=== PATIENT | female | born 1950 | race Caucasian/White ===

== ENCOUNTER 2025-09-13 13:16 | Outpatient (REF) | payer MEDICARE, OTHER, SELFPAY ==
[2025-09-13 16:04] LABS: MANUAL DIFF FLAG NO
[2025-09-13 16:23] LABS: Hematocrit 41.9 % (37.0-47.0); Hemoglobin 13.2 g/dl (12.0-16.0); Imm Gran Abs Auto 0.03 X10*3/uL (0.00-0.03); Imm Gran Pct Auto 0.4 % (0.0-0.4); Lymphocytes Absolute Auto 2.3 X10*3/uL (1.2-4.9); Mean Corpuscular HGB Conc 31.5 g/dl (31.0-35.0); Mean Corpuscular Hemoglobin 27.1 pg (27.0-33.0); Mean Corpuscular Volume 86.0 fL (80.0-98.0); NRBC Abs Auto 0.000 X10*3/uL (0.0-0.012); NRBC Pct Auto 0.0 /100WBC (0.0-0.2); Platelet Count 208 X10*3/uL (160-400); Red Blood Count 4.87 X10*6/uL (4.20-5.50); White Blood Count 7.0 X10*3/uL (4.8-10.8)
[2025-09-13 16:58] LABS: NT Pro B Type Natriuretic Pept 105.6 pg/mL (<300)
--- OUTSIDE RECORDS SUMMARY | 2025-09-13 18:52 | XMS_ITS | Clinical Summary ---
Author Organization [facility] Address [address] [place] [address] Phone Care Team Providers Care [employer] Name Role Phone Carlos Florence MD Primary Care Provider [phone] Allergies No known active allergies Encounters Date Type Department Care Team Description 07/15/[address] [place] [address] Carlos Florence MD 07/12/[address] [place] [address] Carlos Florence MD 07/06/[address] [place] [address] Carlos Florence MD 06/16/2025 8:10 AM EDT - 06/16/2025 11:59 PM EDT Hospital Encounter [facility] Pulmonary [address] [place] [address] Unspecified asthma, uncomplicated Discharge Disposition: Home or Self Care from Last 3 Months Social History Tobacco Use Types Packs/Day Years Used Date Smoking Tobacco: Never Assessed Comments Unknown Sex and Gender Information Value Date Recorded Sex Assigned at Not on file Legal Sex Female 1:10 AM EST Gender Identity Not on file Sexual Orientation Not on file Plan of Treatment Health Maintenance Due Date Last Done Comments Breast Cancer Screening 1950 Colorectal Cancer Screening: Colonoscopy 1950 Diabetes: Annual GFR (Glomerular Filtration Rate) 1950 Diabetes: Annual Foot Exam 1960 Diabetes: Annual Retina Eye Exam 1960 Cholesterol Screening (Lipid Panel) 11/18/2023 Falls Risk Assessment 11/18/2023 Hepatitis C Screening 11/18/2023 Medicare Annual Wellness Visit 11/18/2023 Osteoporosis Screening (Bone Density Screening) 11/18/2023 Social Influencers of Health Screening 11/18/2023 Depression Screening 10/20/2024 Diabetes: Annual Urine Albumin-Creatinine Ratio (uACR) 06/16/2025 Diabetes: Blood Sugar Control Test (HGBA1C) 06/16/2025 COVID-19 Vaccine ( season) 2025 07/02/2024, 07/19/2023, 08/01/2022, Additional history exists Influenza Vaccine (#1) 2025 , 08/15/2023, 07/15/2022, Additional history exists DTaP,Tdap,and Td Vaccines (3 - Td or Tdap) 10/24/2030 10/24/2020, 06/14/2011 Zoster Vaccines Completed 09/14/2019, 05/21, 05/03/2014 Pneumococcal Vaccine: 50+ Years Completed 08/28/2023, 10/06/2017, 06/05/2016, Additional history exists RSV Immunization Adult Patients Completed 04/27/2025 HIB Vaccines Aged Out No longer eligi ble based on patient's age to complete this topic HPV Vaccines Aged Out No longer eligi ble based on patient's age to complete this topic Hepatitis A Vaccines Aged Out No long er eligible based on patient's age to complete this topic Hepatitis B Vaccines Aged Out No long er eligible based on patient's age to complete this topic IPV Vaccines Aged Out No longer eligi ble based on patient's age to complete this topic MMR Vaccines Aged Out No longer eligi ble based on patient's age to complete this topic Meningococcal ACWY Vaccine Aged Out N o longer eligible based on patient's age to complete this topic Meningococcal B Vaccine Aged Out No l onger eligible based on patient's age to complete this topic RSV Immunization Patients Under 20 months Aged Out No longer eligible based on patient's age to complete this topic Varicella Vaccines Aged Out No longer eligible based on patient's age to complete this topic Procedures Procedure Name Priority Date/Time Associated Diagnosis Comments HC SPIROMETRY BRONCHODILATION RESPONSIVENESS PRE/POST BRONCHODILATOR ADMINISTRATION Routine 06/16/2025 9:07 AM EDT Unspecified asthma, uncomplicated from Last 3 Months Results * Pulmonary function testing: Carbon Monoxide Diffusing Capacity, Nitrogen Wash Out, Spirometry with Bronchodilator (06/16/2025 9:07 AM EDT) Narrative Nasreen Marx MD - 06/16/2025 12:36 PM EDT Table formatting from the original result was not included. Images from the original result were not included. [facility] [address] [place] [id number] Pulmonary Functions Report Date of service: 06/16/25 Patient Name: Lillian López Date of : 1950 Age: 74 y.o. Gender: female Ordering Provider: Jolynn Waterman MD Diagnosis listed on Order: Unspecified asthma, uncomplicated Reason for Exam: Order Questions Answers Reason for Exam: UNSPECIFIED ASTHMA, UNCOMPLICATED Which PFTs would you like to perform? Carbon Monoxide Diffusing Capacity,Nitrogen Wash Out,Spirometry with Bronchodilator Pulmonary Test Finding: Spirometry/ Flow Volume Loop: FEV1 is 1.06 at 56 % of predicted., FVC is 73 % of predicted. , FEV1/FVC ratio is 60 % of predicted. Spirometry Post Bronchodilator Response: No bronchodilator response. Lung Volumes: TLC is 78 % of predicted. RV is 93 % of predicted. RV/TLC is is 120 % of predicted. Diffusion Capacity: DLCO is 71 % of predicted (Adjusted DLCO is 72 %). DLCO/VA is 91 % of predicted. Quality of Study: Meets ATS criteria for acceptability and repeatability Refer to scanned report for all additional results and graphs. Interpretation/Impression: Moderate obstruction. Mild restriction. And mild decrease in diffusion. 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 us Jolynn Waterman MD PFT ORDERABLES Final Result from Last 3 Months Insurance MEDICARE [facility] Care Teams Private [employer] Relationship Specialty Start Date End Date Carlos Florence MD [facility] [place] [address] PCP - General Internal Medicine 07/06/25
[2025-09-14 07:08] LABS: Class Alternaria alternata 0; Class Aspergillus fumigatus 0/1; Class Bermuda Grass 0; Class Birch 0; Class Cat Dander 0; Class Cladosporium herbarum 0/1; Class Cockroach 0; Class Common Ragweed 0; Class Cottonwood 0; Class Derm. pterony 2; Class Dermatophagoides farinae 2; Class Dog Dander 0/1; Class Elm 0; Class Maple Box Elder 0; Class Mountain Cedar 0; Class Mouse Urine Protein 0; Class Mugwort 0; Class Oak 0; Class Penicillium crysogenum 0; Class Rough Pigweed 0; Class Sheep Sorrel 0; Class Sycamore 0; Class Timothy Grass 0; Class Walnut Tree 0/1; Class White Ash 0/1; Class White Mulberry 0; D002 - IgE D farinae 2.18 kU/L; E001 - IgE Cat Dander <0.10 kU/L; E005 - IgE Dog Dander 0.20 kU/L; G006 - IgE Timothy Grass <0.10 kU/L; I006-IgE Cockroach, German <0.10 kU/L; M002 - IgE Cladosporium herbar 0.13 kU/L; M003 - IgE Aspergillus fumigat 0.28 kU/L; M006 - IgE Alternaria alternat <0.10 kU/L; T001 IgE Maple/Box Elder <0.10 kU/L; T006 - IgE Cedar, Mountain <0.10 kU/L; T007 - IgE Oak, White <0.10 kU/L; T008 IgE Elm, American <0.10 kU/L; T010 - IgE Walnut 0.25 kU/L; T011 - IgE Maple Leaf Sycamore <0.10 kU/L; T014 - IgE Cottonwood <0.10 kU/L; T015 - IgE Ash, White 0.20 kU/L; T070 - IgE White Mulberry <0.10 kU/L; W001 - IgE Ragweed, Short <0.10 kU/L; W006 - IgE Mugwort <0.10 kU/L; W014 IgE Pigweed, Common <0.10 kU/L; W018 IgE Sheep Sorrel <0.10 kU/L
== END 2025-09-13 13:17 | disposition home or self-care (01) ==
LOC: HO.HMGCLDS 13:16
PROVIDERS: PCP Internal Medicine; Referring Provider Allergy & Immunology; Visit Provider Nurse Practitioner Family
DX: I27.20 Pulmonary hypertension, unspecified (principal); J45.909 Unspecified asthma, uncomplicated; R06.00 Dyspnea, unspecified; Z91.09 Other allergy status, other than to drugs and biological substances
CPT/HCPCS: 36415; 82785; 83880; 85025; 86003; 99202

== ENCOUNTER 2025-09-13 13:16 | Outpatient (AMB) | payer MEDICARE, OTHER, SELFPAY ==
--- OUTSIDE RECORDS SUMMARY | 2025-09-09 23:59 | XMS_ITS | Continuity of Care Document ---
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 Name Role Phone Carlos Florence MD Primary Care Physician [phone] [id number] Date(s): 09/02/25 - 09/09/25 [facility] [address], [place] [address] Attending Physician: Carlos Florence MD Encounter Type: Office Visit Allergies, Adverse Reactions, Alerts Substance Criticality Severity Reaction Reaction Severity Status Other Environmental Allergy pollen, trees, dust, mold Active Soy Products joint pain Active Functional Status Functional Status Assessment Assessment Assessment Component Result Effecti ve Date Disability status [CUBS] I'm Thriving - no identified disability 09/02/25 Are you blind, or do you have serious difficulty seeing, even when wearing glasses No 09/02/25 Do you have difficul ty dressing or bathing No 09/02/25 Do you need any oumou tional assistance or accommodations during your visit No 09/02/25 Are you deaf, or do you have serious difficulty hearing No 09/02/25 Because of a physica l, mental, or emotional condition, do you have difficulty doing errands alone such as visiting a physician's office or shopping No 09/02/25 Difficulty Reading O r Writing No 09/02/25 Do you have serious difficulty walking or climbing stairs No 09/02/25 Difficulty communica ting in usual language No 09/02/25 Because of a physica l, mental, or emotional condition, do you have serious difficulty concentrating, remembering, or making decisions No 09/02/25 Immunizations Given and Recorded Vaccine Date Status Refusal Reason influenza virus vaccine, inactivated 07/30/25 Cruz rded influenza virus vaccine, inactivated 08/14/24 Cruz rded influenza virus vaccine, inactivated 08/15/23 Cruz rded influenza virus vaccine, inactivated 07/15/22 Cruz rded influenza virus vaccine, inactivated 07/13/21 Cruz rded influenza virus vaccine, inactivated 1 06/20/18 Re corded influenza virus vaccine, inactivated 07/21/17 Cruz rded influenza virus vaccine, inactivated 2 07/20/16 Re corded influenza virus vaccine, inactivated 3 07/22/15 Re corded influenza virus vaccine, inactivated 4 09/26/14 Re corded influenza virus vaccine, inactivated 08/08/13 Cruz rded influenza virus vaccine, inactivated 5 08/03/12 Gi yael influenza virus vaccine, inactivated 07/15/11 Give n SARS-CoV-2(COVID-19)mRNA-LNP vac([id number]) 07/22/25 Recorded RSV vaccine, preF A-preF B, recombinant 04/27/25 R ecorded SARS-CoV-2(COVID-19)mRNA-LNP vac([id number]) 07/02/24 Recorded SARS-CoV-2(COVID-19)mRNA-LNP vac([id number]) 07/19/23 Recorded pneumococcal 20-valent conjugate vaccine 08/28/23 Given [id number] 12y+ bivalent booster vax 08/01/22 Recorded SARS-CoV-2 mRNA ([id number]) vax 05/03/22 Recorded SARS-CoV-2 (COVID-19) mRNA BNT-162b2 vac 08/03/21 Recorded SARS-CoV-2 (COVID-19) mRNA BNT-162b2 vac 01/02/21 Recorded SARS-CoV-2 (COVID-19) mRNA BNT-162b2 vac 12/11/20 Recorded tetanus/diphtheria/pertussis, acel(Tdap) 6 10/24/20 Given tetanus/diphtheria/pertussis, acel(Tdap) 06/14/11 Given Influenza Virus Vaccine (oldterm) 07/17/20 Recorde d Influenza Virus Vaccine (oldterm) 07/20/19 Recorde d zoster vaccine, inactivated 09/14/19 Recorded zoster vaccine, inactivated 06/14/19 Recorded pneumococcal 23-valent vaccine 10/06/17 Given pneumococcal 13-valent vaccine 06/05/16 Recorded Zoster Vaccine Live 05/03/14 Given Pneumococcal Vaccine (oldterm) 06/14/11 Given 1Location History: Dr. Morejon's Office 2Result Comment: [09/30/2016] allergy 3Result Comment: [09/29/2015] recevied Dr Kimble office 4Result Comment: [09/26/2014] per pt 5Admin Note: allergy doctor 6Result Comment: [id number] Medications Breztri Aerosphere inhalation aerosol 2 inhalation, 0 Refills, Maintenance, 08/02/25 1:22:00 PM EDT, Partial fill upon patient request ifthe prescription is for a schedule II opioid drug. Start Date: 08/02/25 Status: Ordered Medication Dispense Status: Completed Total Allowed Fills: 1 Fills Dispensed: 0 ICaps Lutein & [place]-3 0 Refills, Maintenance, 02/25/24 8:19:00 AM EDT, Partial fill upon patient request if the prescription is for a schedule II opioid drug. Start Date: 02/25/24 Status: Ordered Medication Dispense Status: Completed Total Allowed Fills: 1 Fills Dispensed: 0 Knee Support See Instructions, # 1 units, Maintenance, elastic brace for dx of torn meniscus, 09/07/14 1:24:08 PM EST, Compound Start Date: 09/07/14 Status: Ordered Medication Dispense Status: Completed Quantity: 1.0 Unit: Units Total Allowed Fills: 1 Fills Dispensed: 0 levalbuterol 45 mcg/inh inhalation aerosol 0 Refills, Maintenance, 08/28/23 8:13:00 AM EST, Partial fill upon patient request if the prescription is for a schedule II opioid drug. Start Date: 08/28/23 Status: Ordered Medication Dispense Status: Completed Total Allowed Fills: 1 Fills Dispensed: 0 levothyroxine 0.05 mg oral tablet 1 tablet, By Mouth, Daily, # 90 tablet, 3 Refills, Maintenance, 09/02/25 9:16:00 AM EST, [facility]/pharmacy #[id number], 160, cm, 09/02/25 8:45:00 EST, Height, 69, kg, 09/02/25 8:45:00 EST, Dry Weight Start Date: 09/02/25 Status: Ordered Medication Dispense Status: Completed Quantity: 90.0 Unit: tablet Total Allowed Fills: 4 Fills Dispensed: 0 metFORMIN 500 mg oral tablet, extended release 4 tablet = 2,000 mg, By Mouth, Daily at supper, THis is NOT the osmoticformulation, # 360 tablet, 3Refills, Maintenance, 08/22/25 9:11:00 AM EST, ER Tablet, [facility]/pharmacy #[id number], THis is NOT the osmoticformulation, 160, cm, 02/25/25 9:11:00 EDT, Height, 68.6, kg, 02/25/25 8:40:00 EDT, Dry Weight Start Date: 08/22/25 Status: Ordered Medication Dispense Status: Completed Quantity: 360.0 Unit: tablet Total Allowed Fills: 4 Fills Dispensed: 0 nystatin topical 631502 u/gm powder 1 application, Topically, 2 times a day, # 60 Gm, 0 Refills, Maintenance, 05/20/25 12:29:00 PM EDT, Powder, [facility]/pharmacy #[id number], Partial fill upon patient request if the prescription is for a schedule II opioid drug., 1 application Topically 2 times a day, 160, cm, 04/07/25 12:56:00 EDT, Height, 68.9,kg, 04/07/25 12:56:00 EDT, Dry Weight Start Date: 05/20/25 Status: Ordered Medication Dispense Status: Completed Quantity: 60.0 Unit: g Total Allowed Fills: 1 Fills Dispensed: 0 One Touch Delica Lancets See Instructions, # 1 box, Refills 6, Tot. Refills 6, Maintenance, Test blood sugar twice daily DX:DM type 2, 06/20/11 3:03:39 PM EDT Start Date: 06/20/11 Status: Ordered Medication Dispense Status: Completed Quantity: 1.0 Unit: box Total Allowed Fills: 7 Fills Dispensed: 0 One Touch Ultra Test Strips See Instructions, # 100 each, Refills 11, Tot. Refills 11, Maintenance, use bid aodm 2 e11.9, 02/25/25 9:17:00 AM EDT, Supply, 160, cm, 02/25/25 9:11:00 EDT, Height, 68.6, kg, 02/25/25 8:40:00 EDT, DryWeight Start Date: 02/25/25 Status: Ordered Medication Dispense Status: Completed Quantity: 100.0 Unit: each Total Allowed Fills: 12 Fills Dispensed: 0 pimecrolimus topical cream 0 Refills, Maintenance, 01/30/23 8:21:00 AM EDT, Partial fill upon patient request if the prescription is for a schedule II opioid drug. Start Date: 01/30/23 Status: Ordered Medication Dispense Status: Completed Total Allowed Fills: 1 Fills Dispensed: 0 pravastatin 80 mg oral tablet 1 tablet, By Mouth, Daily, # 90 tablet, 3 Refills, Maintenance, 09/02/25 9:16:00 AM EST, [facility]/pharmacy #[id number], 160, cm, 09/02/25 8:45:00 EST, Height, 69, kg, 09/02/25 8:45:00 EST, Dry Weight Start Date: 09/02/25 Status: Ordered Medication Dispense Status: Completed Quantity: 90.0 Unit: tablet Total Allowed Fills: 4 Fills Dispensed: 0 Tylenol 325 mg oral capsule 2 capsule = 650 mg, By Mouth, Every 4 hours, PRN Pain , Moderate, # 90 capsule, 0 Refills, Maintenance, 01/10/22 12:10:00 PM EDT, Capsule, [id number], Partial fill upon patient request if the prescription is for a schedule II opioid drug., 157.48, cm, 01/10/22 9:13:00 EDT, Height, 71.1, kg, 01/10/22 9:13:00 EDT, Dry Weight Start Date: 01/10/22 Status: Ordered Medication Dispense Status: Completed Quantity: 90.0 Unit: capsule Total Allowed Fills: 1 Fills Dispensed: 0 Vitamin D3 1000 intl units oral tablet 1 tablet = 25 mcg, By Mouth, Daily, 0 Refills, Maintenance, 08/28/23 8:16:00 AM EST, Partial fill upon patient request if the prescription is for a schedule II opioid drug. Start Date: 08/28/23 Status: Ordered Medication Dispense Status: Completed Total Allowed Fills: 1 Fills Dispensed: 0 ZyrTEC 10 mg oral tablet 1 tablet = 10 mg, By Mouth, Daily, # 30 tablet, 3 Refills, Maintenance, 05/25/20 9:20:00 AM EDT, Tablet, [id number], 158, cm, 05/25/20 8:54:00 EDT, Height, 74.8, kg, 04/06/19 8:18:00 EDT, Dry Weight Start Date: 05/25/20 Status: Ordered Medication Dispense Status: Completed Quantity: 30.0 Unit: tablet Total Allowed Fills: 4 Fills Dispensed: 0 Problem List Condition Confirmation Course Effective Dates Status H ealth Status Informant Asthma Confirmed Active Diabetes mellitus type 2 Confirmed Active Diverticulosis of colon Confirmed 04/15/22 Active S/P BSO (bilateral salpingo-oophorectomy ) Confirmed 01/10/22 Active H/O osteopenia Confirmed Active H/O: obesity Confirmed Active Hyperlipidemia Confirmed 05/05/11 Active Hypothyroid Confirmed Active Osteopenia Confirmed Active Pelvic mass Confirmed Active Personal History of Colonic Polyps Confirmed 07/15/09 Active 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 Confirmed 09/15/11 Active Vital Signs Most recent to oldest [Reference Range]: 1 Height 160 cm (09/02/25 8:45 AM) Weight 69 kg (09/02/25 8:45 AM) Oxygen Saturation [94-100 %] 96 % (09/02/25 8:45 AM) Pulse Rate [55-90 bpm] 87 bpm (09/02/25 8:45 AM) Body Mass Index [18.5-24.99 kg/m2] 26.95 kg/m2 *H* (09/02/25 8:45 AM) Blood Pressure [90-138/55-84 mm Hg] 131/ 78mm Hg (09/02/25 8:45 AM) Mode of Delivery (Oxygen) Room air (09/02/25 8:45 AM) Blood pressure sites Arm, left (09/02/25 8:45 AM) Dry Weight 69 kg (09/02/25 8:45 AM) Weight Obtained Via Standing scale (09/02/25 8:45 AM) Social History Social History Type Response Smoking Status Never smoker entered on: 05/30/14 Sexual Orientation Self described orijena tation: ; Straight or heterosexual Sex Sex Representation Female (finding) Note * Sussy Johnson: PERFORM Event Display: Patient Education/Instruction Authored Date: Ambulatory Adult Visit Summary [facility] [address] [place] [id number] Name: LILLIAN REY : 1950?? Visit: 09/02/2025 08:27?? Ambulatory Visit Instructions ?? Your Care Team Primary Care Provider Carlos Florence MD? This Visit Provider Carlos Florence MD Your Diagnosis Asthma Diabetes mellitus type 2 Hyperlipidemia Hypothyroid Vitals Signs Pulse Rate: 87 bpm Height: 160 cm Systolic Blood Pressure: 131 mm Hg Weight: 69 kg Diastolic Blood Pressure: 78 mm Hg Body Mass Index:??26.95 kg/m2??High Oxygen Saturation: 96 % Body surface area: 1.75 What to do next Scheduled Follow-Up Appointments Friday2025 10:30 AM EDT ?? Type: MM Screening Mammo Where: [facility] [address] [place] [id number]- Status: Pending Follow-Up Appointments Follow Up with??Carlos Florence MD When:2025 08:00 AM EDT Where:[address] [place] [address] Adult & [place] [address]- Future Orders COVID-19, Flu A/B, RSV Rapid PCR - Routine, Nasopharyngeal, Patient is Symptomatic, Once, 02/09/25 14:47:00 EDT, Copy to: Carlos Florence MD, Order for Today, [facility], Nasopharyngeal?? Hemoglobin A1C (Monitoring) - Routine, Once, 08/28/25 3:00:00 EST, Single or Recurring Future Order, [facility], Blood?? Lipid Panel - Routine, Once, 09/02/25 9:14:00 EST, Single or Recurring Future Order, [facility], Blood?? AST - Routine, Once, 09/02/25 9:14:00 EST, Single or Recurring Future Order, [facility], Blood?? Hemoglobin A1C (Monitoring) - Routine, Once, 09/02/25 9:14:00 EST, Single or Recurring Future Order, [facility], Blood?? TSH - Routine, Once, 09/02/25 9:14:00 EST, Single or Recurring Future Order, [facility], Blood?? Free T4 - Routine, Once, 09/02/25 9:15:00 EST, Single or Recurring Future Order, [facility], Blood?? Medications The list below reflects the information in our records and provided by you today along with any changes made during this visit. Please continue your medications until treatment is completed or stopped by your provider. If this is different from the information you have or there are other questions,please contact the prescribing provider. What How Much When Instructions New Levothyroxine (levothyroxine 0.05 mg oral tablet) 1 tab(s) Oral Daily Refills: 3 Ordering Physician: Carlos Florence MDup at [facility]/pharmacy #[id number] New Pravastatin (pravastatin 80 mg oral tablet) 1 tab(s) Oral Daily Refills: 3 Ordering Physician: Carlos Florence MDup at [facility]/pharmacy #[id number] Unchanged Acetaminophen (Tylenol 325 mg oral capsule) 2 capsule Oral Every 4 hours as needed for Pain , Moderate Ordering Physician: Ki GARCIA, Liliya Panchal Unchanged budesonide/ formoterol/ glycopyrrolate (Breztri Aerosphere inhalation aerosol) 2 inhalation Unchanged Cetirizine (ZyrTEC 10 mg oral tablet) 1 tab(s) Oral Daily Ordering Physician: Braulio GARCIA, Loretta Unchanged Cholecalciferol (Vitamin D3 1000 intl units oral tablet) 1 tab(s) Oral Daily Unchanged Durable Medical Equipment (Knee Support) See instructions Special Instructions: elastic ??brace ?? for ??dx ??of ??torn ??meniscus Ordering Physician: Carlos Florence MD ?? Unchanged Durable Medical Equipment (One Touch Delica Lancets) See instructions Special Instructions: Test blood sugar twice daily DX: DM type 2 Ordering Physician: Carlos Florence MD ?? Unchanged Durable Medical Equipment (One Touch Ultra Test Strips) See instructions Special Instructions: use bid ??aodm 2 ??e11.9 Ordering Physician: Carlos Florence MD ?? Unchanged Levalbuterol (levalbuterol 45 mcg/ inh inhalation aerosol) Unchanged Metformin (metFORMIN 500 mg oral tablet, extended release) 4 tab(s) Oral Daily at supper Special Instructions: THis ??is ??NOT ??the ??osmoticformulation Ordering Physician: Carlos Florence MD ?? Unchanged Multivitamin With Minerals (ICaps Lutein & [place]-3) Unchanged Nystatin Topical (nystatin topical 208254 u/ gm powder) 1 yovany Topically Twice a day Ordering Physician: Carlos Florence MD Unchanged Pimecrolimus Topical (pimecrolimus topical cream) Pharmacy Information [facility]/pharmacy #[id number]: [address], [place] [id number] [phone] ?? What How Much When Comments Stop Taking PredniSONE (predniSONE 10 mg oral tablet) See instructions Special Instructions: 4 qam X 3 days, 3 X3 days, 2 X 3 day;s, 1X 3 days Ordering Physician: Carlos Florence MD ?? Test Performed Below is a partial list of the tests performed during your Visit. You may have had other tests and procedures not included in this list. Please discuss all test results with your provider. AST?-- Results Pending -- Free T4?-- Results Pending -- Hemoglobin A1C (Monitoring)?-- Results Pending -- Lipid Panel?-- Results Pending -- TSH?-- Results Pending -- Medications and Immunizations Administered Medications Given During Visit No medications given during this visit.?? Allergies (NKA means No Known Allergies) Other Environmental Allergy??pollen, trees, dust, mold Soy Products??joint pain Common Emergency Awareness Tips IS IT A STROKE? Act FAST and Check for these signs: FACE Does the face look uneven? ARM Does one arm drift down? SPEECH Does their speech sound strange? TIME Call at any sign of stroke ?? Heart Attack Signs Chest discomfort: Most heart attacks involve discomfort in the center of the chest and lasts more than a few minutes, or goes away and comes back. It can feel like uncomfortable pressure, squeezing, fullness or pain. Discomfort in upper body: Symptoms can include pain or discomfort in one or both arms, back, neck, jaw or stomach. Shortness of breath: With or without discomfort. Other signs: Breaking out in a cold sweat, nausea, or lightheaded. Remember, MINUTES DO MATTER. If you experience any of these heart attack warning signs, call to get immediate medical attention! ?? Smoking can increase your chances of developing chronic health problems and can cause harmful effects to other family members in your house. If you smoke, you are strongly encouraged to quit. Please call [facility] Link at [phone] or [phone] ([phone]) or log in to [email or web address] for referrals to smoking cessation programs. ?? The National Suicide Prevention Hotline is available 12/05 if you or someone you know needs to find a reason to keep living. By calling 4-737-897-[employer] (3698) you'll be connected to a skilled, trained counselor at a crisis center in your area. [facility] Portal You can view and manage your care through the patient portal or by using a health care yovany of your choosing. [employer] is a website that allows you to securely view your medical information including your hospital discharge summary, office visit summaries, medications and follow-up visits. You can also request appointments, renew medications, and request access to your medical information using a health care yovany of your choosing, or just ask a question. You can enroll at [email or web address] or register during your next office visit. [facility], in keeping with [facility] guidance, no longer requires face masks for staff, patientsor visitors in most situations. Similiar to time spent indoors at other locations, there is the chance that you were exposed to repiratory viruses during your time with us (such as flu or COVID-19). If you develop symptoms concerning for a viral respiratory infection, please seek testing (and treatment if indicated) from your medical provider or home test kit. ?? Disclaimer: The information provided is of a general nature and is intended to be used in conjunction with the recommendations and advice of your health care practitioner. Every effort has been made to ensure that the information provided is accurate and complete at the time it is provided to you however, as your needs change, or, as new information becomes available, different or additional instructions may be required. ?? If you have questions, please consult with your primary care provider or pharmacist, as appropriate. This information is not intended to serve as substitution for assessment and evaluation by a qualified health care provider. If you do not have a primary care provider, you may find a [facility] provider by calling [facility] at [phone]. Patient Care team information Care Team Personnel Name: Carlos Florence MD Position: [facility] Physician - Primary Care Member Role: PCP Address: [address] [place] [address] [facility] [place] [id number] Telecom: Care Team Related Persons Name: DAMON REY Insurance Providers Guarantor name: LILLIAN CANDIDO Health Plan Information #: 1 Payer: MEDICARE B Payer Identifier: NA Member Number: [id number] Group Number: NA Subscriber Identifier: [id number] Relationship to Subscriber: self Coverage Type: NA Coverage Verification Date: NA Telecom: NA Address: Health Plan Information #: 2 Payer: [facility] [employer] Payer Identifier: Member Number: [id number] Group Number: [id number] Subscriber Identifier: [id number] Relationship to Subscriber: spouse Coverage Type: Commercial Indemnity Coverage Verification Date: NA Telecom: Address:
--- NOTE | 2025-09-13 13:19 | MHC.OFFVIS ---
Vital Signs 09/13/25 13:20 Height 5 ft 2 in Weight 155 lb 4 oz BMI 28.4 BP 110/68 Blood Pressure Location Lt brachial Position Sitting Pulse 74 Pulse Source Pulse Oximeter Pulse Oximetry (%) 94 Oxygen Delivery Method Room Air Intake Visit Reasons: Abnormal CT scan Allergies No Known Allergies Allergy (Verified 09/13/25 13:21) HPI HPI Abnormal CT scan: Details: Minda is a pleasant 74 year old female, never smoker, with underlying asthma, DMII and hypothyroidism. She was referred by Dr. Waterman for pulmonary evaluation for worsening asthma control and abnormal chest CT. She reports asthma was diagnosed in 2022 and is allergy-induced, with symptoms primarily occurring during physical exertion such as climbing stairs or walking uphill. The patient reports using Breztri since June 29, with some improvement, but still experiences dyspnea on exertion. Denies cough, wheezing, or chest tightness. The patient has a history of allergic rhinitis, with known allergies to dust, mold, trees, and pollen, and previously received allergy shots for 20+ years, no recent allergy testing. The patient reports sinus congestion, which was problematic two years ago, leading to a debridement procedure with significant improvements. Pulmonary hypertension was suspected due to mildly enlargement within the pulmonary arteries, noted on chest CT 06/2025. Subsequently underwent echo which demonstrated mild pulmonary hypertension RVSP 44 mmHg, per industrial maintenance mechanic, Dr. Flanagan at [facility], felt this was related to asthma. The patient underwent a pulmonary function test showing moderate obstruction and mild restriction, with a decreased diffusion capacity at 71%. A CT scan revealed mild atelectasis and slight enlargement of the heart, with mild calcifications in the coronary arteries otherwise no signs of ILD. [facility] Social History (Updated 09/13/25 @ 13:22 by Jocy Rod [facility]) Patient Tobacco Use Status: Never used Tobacco Review of Systems Const Denies chills, Denies excessive sweating, Denies fever(s), Denies headache(s) and Denies night sweats Eyes Denies dry eyes, Denies irritation and Denies itchy eyes ENT Reports Normal hearing present, Denies headache(s), Denies nasal congestion and Denies sore throat Card Denies chest pain, Denies chest pain at rest, Denies chest pain with activity, Denies claudication, Denies leg edema, Denies orthopnea and Denies paroxysmal nocturnal dyspnea Resp Denies chest congestion, Denies cough, Denies excessive phlegm production, Denies pain on inspiration, Denies pain with cough, Denies stridor and Denies wheezing Musc Denies myalgias Neuro Reports Normal hearing present and Denies headache(s) Endo Denies excessive sweating Mehul/Lymph Denies lymphadenopathy Aller/Immun Denies itchy eyes, Denies seasonal rhinorrhea and Denies wheezing Physical Exam Vital Signs: Last Vital Signs Pulse 74 09/13/25 13:20 BP 110/68 09/13/25 13:20 Pulse Ox 94 09/13/25 13:20 Oxygen Delivery Method Room Air 09/13/25 13:20 BMI result Body Mass Index 28.4 Const General: cooperative, healthy appearing, comfortable, no acute distress, well developed and alert Orientation/consciousness: patient oriented x3 Limitations: no limitations HEENT Head: Yes normal to inspection, Yes normocephalic and Yes atraumatic Ears: hearing grossly normal bilaterally and external ears normal Eyes General: appearance normal, both eyes and all related structures Eyelids: Yes eyelids normal Sclerae: sclerae normal EOM: EOMs intact bilaterally Neck Neck: Yes normal visual inspection and Yes no lymphadenopathy Lymphatic: no lymphadenopathy noted Chest Chest palpation & inspection: normal inspection of the chest Resp Effort & Inspection: normal respiratory effort, able to speak in complete sentences, no audible wheezes, no cough, no stridor, not tachypneic, no tripod positioning and no use of accessory muscles Auscultation: clear to auscultation bilaterally Cardio Jugular venous distension: no JVD Rate: regular rate Rhythm: regular rhythm Skin Other: warm, dry General skin exam: no rashes or lesions noted Neuro General: patient oriented x3 Cranial nerves: Yes Normal hearing present Cognition (Neuro): normal cognition Gait exam (Neuro): Normal gait present Extrem General: Yes normal to inspection, Yes capillary refill normal, Yes no clubbing, cyanosis or edema and Yes no pedal edema Psych Appearance: grossly normal and well kempt Speech and movement: Normal speech and movement present and Clear speech present Affect: normal affect Attitude: cooperative Thought process: Normal thought process present Thought content: Normal thought content present Insight: Good insight present (Psych) Judgement: Good judgement present (Psych) Assessment & Plan Assessment & Plan (1) Pulmonary hypertension: Code(s): I27.20 - Pulmonary hypertension, unspecified Category: Medical (2) Asthma: Code(s): J45.909 - Unspecified asthma, uncomplicated Category: Medical (3) Environmental allergies: Code(s): Z91.09 - Other allergy status, other than to drugs and biological substances Category: Medical (4) Dyspnea: Code(s): R06.00 - Dyspnea, unspecified Category: Medical Plan Discussed with the patient the potential causes of pulmonary hypertension, including cardiac and pulmonary origins, and the importance of accurate diagnosis through right heart catheterization. We reviewed the risks and benefits of the procedure, including the potential for bleeding and infection, and the need for accurate pressure measurements to guide treatment. Will hold off until next visit to refer as patient apprehensive. Explained the role of allergy testing in managing asthma and the possibility of using biologics if allergies are a significant factor. Will also send for BNP although patient does not appear overloaded at this time. Continued follow up with cardiology recommended. The patient is advised to continue using Breztri for asthma management, with consideration for switching to Trelegy if symptoms persist. The patient is instructed to monitor symptoms and report any worsening, and to consider using albuterol as needed for acute symptoms. All questions were answered and patient is in agreement of plan. Will follow up in 6-8 weeks or sooner if needed Orders: Orders NT Pro B Type Natriuretic Pept 09/13/25 R06.00 - Dyspnea, unspecified Resp Allergy Profile Region I 09/13/25 Z91.09 - Other allergy status, other than to drugs and biological substances Immunoglobulin E 09/13/25 Z91.09 - Other allergy status, other than to drugs and biological substances Complete Blood Count Auto Diff 09/13/25 Z91.09 - Other allergy status, other than to drugs and biological substances Coding Level of Care Code New Pt Level 4 (64139) Complex visit Add On G2211 Diagnoses Pulmonary hypertension I27.20 Asthma J45.909 Environmental allergies Z91.09 Dyspnea R06.00
[2025-09-13 13:20] VITALS: BP 110/68; PULSE 74; O2SAT 94; BMI 28.4
--- OUTSIDE RECORDS SUMMARY | 2025-09-13 17:05 | XMS_ITS | Encounter Summary ---
Author Organization [facility] Address [address] [place] [address] Phone Care Team Providers Care Reshipping Clerk Name Role Phone Carlos Florence MD Primary Care Provider Encounter Details Date Type Department Care Team (Late st Contact Info) Description 01/27/2024 Procedure Pass [facility] Periop 1st floor [address] [place] [address] Social History Tobacco Use Types Packs/Day Years Used Date Smoking Tobacco: Never Smokeless Tobacco: Never Alcohol Use Standard Drinks/Week Comments Not Currently 0 (1 standard drink = 0.6 oz pur e alcohol) Education Answer Date Recorded Are you interested in more education? Not on lindy e 02/15/2023 Are you concerned about learning? Not on file 02/15/2023 No 02/15/2023 No 02/15/2023 Digital Access Answer Date Recorded No 03/16/2023 No 03/16/2023 Reliable internet access at home? Not on file 03/16/2023 Device with a working camera? Not on file Intimate Partner Violence Answer Date R ecorded Are you denied basic needs s uch as food, clothing, or medical care? No 01/27/2024 In the past 12 months have y ou been in a relationship with a person who hurts, threatens, or tries to control you? No 01/27/2024 Are you denied basic needs s uch as food, clothing, or medical care? No 01/27/2024 In the past 12 months have y ou been in a relationship with a person who hurts, threatens, or tries to control you? No 01/27/2024 Comments No Sex and Gender Information Value Date Recorded Sex Assigned at Not on file Legal Sex Female 6:21 PM EST Gender Identity Not on file Sexual Orientation Not on file documented as of this encounter Plan of Treatment Not on file documented as of this encounter Visit Diagnoses Not on filedocumented in this encounter Care Teams Reshipping Clerk Relationship Specialty Start Date End Date Carlos Florence MD [facility] [place] [address] PCP - General 02/28/15 documented as of this encounter Additional Source Comments The information contained in this document represents components of the legal health record. It is not the complete legal health record.[facility]
--- OUTSIDE RECORDS SUMMARY | 2025-09-13 17:05 | XMS_ITS | Encounter Summary ---
Author Organization [facility] Address [address] [place] [address] Phone Care Team Providers Care Ornament Maker Hand Name Role Phone Carlos Florence MD Primary Care Provider Bridgette Sifuentes MD Unavailable [phone] Encounter Details Date Type Department Care Team (Late st Contact Info) Description 09/03/2018 Procedure Pass [facility] MR Imaging, [place] [address] [place] [address] Social History Tobacco Use Types Packs/Day Years Used Date Smoking Tobacco: Never Smokeless Tobacco: Never Alcohol Use Standard Drinks/Week Comments Yes 0 (1 standard drink = 0.6 oz pur e alcohol) Comments Unknown Sex and Gender Information Value Date Recorded Sex Assigned at Not on file Legal Sex Female 6:21 PM EST Gender Identity Not on file Sexual Orientation Not on file documented as of this encounter Plan of Treatment Not on file documented as of this encounter Visit Diagnoses Not on filedocumented in this encounter Care Teams Ornament Maker Hand Relationship Specialty Start Date End Date Carlos Florence MD [address] [place] [id number] PCP - General 02/28/15 Bridgette Sifuentes MD [facility] [id number] [place] [address] Historical LMR Provider 03/04/15 2 documented as of this encounter Additional Source Comments The information contained in this document represents components of the legal health record. It is not the complete legal health record.[facility]
--- OUTSIDE RECORDS SUMMARY | 2025-09-13 17:05 | XMS_ITS | Encounter Summary ---
Author Organization [facility] Address [address] [place] [address] Phone Care Team Providers Care Operator Command Support Systems Name Role Phone Carlos Florence MD Primary Care Provider Encounter Details Date Type Department Care Team (Late st Contact Info) Description 07/11/2025 Procedure Pass [facility] [address] [place] [address] Social History Tobacco Use Types Packs/Day Years [...] on filedocumented in this encounter Care Teams Operator Command Support Systems Relationship Specialty Start Date End Date Carlos Florence MD [facility] [place] [address] PCP - General 02/28/15 documented as of this encounter Additional Source Comments The information contained in this document represents components of the legal health record. It is not the complete legal health record.[facility]
--- OUTSIDE RECORDS SUMMARY | 2025-09-13 17:05 | XMS_ITS | Encounter Summary ---
Author Organization [facility] Address [address] [place] [address] Phone Care Team Providers Care Retort Setter Name Role Phone Carlos Florence MD Primary Care Provider Bridgette Sifuentes MD Unavailable [phone] Encounter Details Date Type Department Care Team (Late st Contact Info) Description 08/26/2016 Procedure Pass [facility] MR Imaging, [place] [address] [place] [address] Social History Tobacco Use Types Packs/Day Years [...] on filedocumented in this encounter Care Teams Retort Setter Relationship Specialty Start Date End Date Carlos Florence MD [address] [place] [id number] PCP - General 02/28/15 Bridgette Sifuentes MD [facility] [address] [place] [address] Historical LMR Provider 03/04/15 2 documented as of this encounter Additional Source Comments The information contained in this document represents components of the legal health record. It is not the complete legal health record.[facility]
--- OUTSIDE RECORDS SUMMARY | 2025-09-13 17:05 | XMS_ITS | Encounter Summary ---
Author Organization [facility] Address [address] [place] [address] Phone Care Team Providers Care Instrument Shop Supervisor Name Role Phone Carlos Florence MD Primary Care Provider Encounter Details Date Type Department Care Team (Late st Contact Info) Description 09/14/2024 Procedure Pass [facility] [address] [place] [address] Social History Tobacco Use Types Packs/Day Years [...] on filedocumented in this encounter Care Teams Instrument Shop Supervisor Relationship Specialty Start Date End Date Carlos Florence MD [facility] [place] [address] PCP - General 02/28/15 documented as of this encounter Additional Source Comments The information contained in this document represents components of the legal health record. It is not the complete legal health record.[facility]
--- OUTSIDE RECORDS SUMMARY | 2025-09-13 17:05 | XMS_ITS | Clinical Summary ---
Author Organization [facility] Address [address] [facility] [address] [place] [address] Phone Care Team Providers Care Typist Name Role Phone Carlos Florence MD Primary Care Provider Allergies Active Allergy Reactions Criticality Noted Date Comments Soy Other (See Comments) 05/26/2012 Joint Pain Medications pravastatin (PRAVACHOL) 80 MG tablet Take 80 mg by mouth daily. 12/21/2012 Active Active Problems Problem Noted Date Diagnosed Date Type 2 diabetes mellitus wit hout complication, without long-term current use of insulin 08/24/2019 Pituitary adenoma 08/07/2015 Seasonal allergic rhinitis 05/26/2012 Overview (12/10/2014): Seasonal allergic rhinitis Encounters Date Type Department Care Team Description 08/29/2025 12:30 PM EST Telemedicine [facility] Department of Neurosurgery [address] [place] [address] Hang Emerson MD, PhD, MPH Pituitary adenoma (Primary Dx) 08/18/2025 8:24 AM EDT - 08/18/2025 11:59 PM EDT Hospital Encounter [facility] [address] [place] [address] Abrahan Flanagan MD Discharge Disposition: Home or Self Care 08/17/2025 8:19 AM EDT - 08/17/2025 11:59 PM EDT Hospital Encounter [address] [address] Hang Emerson MD, PhD, MPH Discharge Disposition: Home or Self Care 07/11/2025 8:00 AM EDT Office Visit [facility] at [address] [address] Abrahan Flanagan MD Pulmonary hypertension, unspecified (Primary Dx); Mild intermittent asthma without complication; Type 2 diabetes mellitus without complication, without long-term current use of insulin; Mixed hyperlipidemia 07/11/2025 Procedure Pass [facility] [address] [place] [address] 07/11/2025 Orders Only [facility] at [address] [address] Abrahan Flanagan MD 09/14/2024 Procedure Pass [address] [address] from Last 3 Months Immunizations Immunization Administration Dates Next Due Influenza, Unspecified Formulation 09/20/2011(De nurysd: Other) Pneumococcal polysaccharide PPSV23 09/20/2011(Gilesd: Other) Family History Medical History Relation Comments Cerebrovascular disease Father Diabetes Mother Heart disease Mother Relation Status Comments Father Mother Social History Tobacco Use Types Packs/Day Years Used Date Smoking Tobacco: Never Smokeless Tobacco: Never Tobacco Cessation:Counseling Given: Not Answered Alcohol Use Standard Drinks/Week Comments Not Currently 0 (1 standard drink = 0.6 oz pur e alcohol) Child or Family Care Answer Date Record ed Do you have problems with on e of the following making it difficult for you to work, study, or receive health care? No 08/26/2025 Education Answer Date Recorded Are you interested in more education? Not on lindy e 02/15/2023 Are you concerned about learning? Not on file 02/15/2023 No 02/15/2023 No 02/15/2023 Food Answer Date Recorded Within the past 6 months we worried whether our food would run out before we got money to buy more. Never True 08/26/2025 Within the past 6 months the food we bought just didn't last and we didn't have enough money to get more. Never True Residential Stability Answer Date Recor ded What is your housing situation today? I have rosemary enriquez 08/26/2025 How many times have you move d in the past 12 months? Zero (I did not move) 08/26/2025 Paying for Meds Answer Date Recorded Do you have trouble paying for medicines? No 08/26/2025 Paying Utility Bills Answer Date Record ed Do you have trouble paying your heating or elect ricity bill? No 08/26/2025 Transportation Answer Date Recorded Has the lack of transportati on kept you from medical appointments or from getting medications? No 08/26/2025 Digital Access Answer Date Recorded No 08/26/2025 Yes 08/26/2025 Do you have reliable internet access at home? Ye s 08/26/2025 Do you have a device (e.g., phone, tablet, computer) with a working camera? Yes 08/26/2025 Intimate Partner Violence Answer Date R ecorded [...] on file Sexual Orientation Not on file Last Filed Vital Signs Vital Sign Reading Time Taken Comments Blood Pressure 134/61 07/11/2025 7:54 AM EDT Pulse 68 07/11/2025 7:54 AM EDT Temperature 36.7 C (98.1 F) 01/27/2024 9:15 AM EDT Respiratory Rate 17 01/27/2024 9:15 AM EDT Oxygen Saturation 97% 07/11/2025 7:54 AM EDT Inhaled Oxygen Concentration - - Weight 68 kg (150 lb) 08/10/2025 3:21 PM EDT Height 152.4 cm (5') 08/10/2025 3:21 PM EDT Body Mass Index 29.29 08/10/2025 3:21 PM EDT Plan of Treatment Health Maintenance Due Date Last Done Comments Adult Td,Tdap Booster 1950 Dental Oral Exam 1950 Dental Prophylaxis 1950 Dental X-Ray: Bitewings 1950 DEPRESSION SCREENING 1962 HEPATITIS C SCREENING 1968 MAMMOGRAM 1990 COLOGUARD 12/31/1995 COLONOSCOPY 12/31/1995 COLORECTAL CANCER SCREENING 12/31/1995 FIT TEST 12/31/1995 FOBT 12/31/1995 SIGMOIDOSCOPY 12/31/1995 VIRTUAL COLONOSCOPY 12/31/1995 HEMOGLOBIN A1C 07/08/2012 01/06/2012 OSTEOPOROSIS SCREENING INITIAL (ONE-TIME) 12/31/2015 ZOSTER VACCINES (2 of 2) 08/09/2019 06/14/2019 DIABETIC EYE EXAM 08/25/2019 URINE MICROALBUMIN/CREATININE RATIO 08/25/2019 BLOOD PRESSURE 01/08/2026 07/11/2025 COVID-19 VACCINE ( season) 2026 07/22/2025, 07/02/2024, 07/19/2023, Additional history exists PNEUMOCOCCAL VACCINES (50+ years) Completed 08/28/2023, 06/05/2016 SMOKING STATUS SCREENING (Once After 26 Yrs) Completed 01/27/2024 RSV VACCINE Completed 04/27/2025 INFLUENZA VACCINE Completed 07/30/2025, , 08/15/2023, Additional history exists HEPATITIS A VACCINES Aged Out No long er eligible based on patient's age to complete this topic HIB VACCINES Aged Out No longer eligi ble based on patient's age to complete this topic MENINGOCOCCAL VACCINES (ACWY) Aged Out No longer eligible based on patient's age to complete this topic MENINGOCOCCAL VACCINES (B) Aged Out N o longer eligible based on patient's age to complete this topic Medical Devices Not on file Procedures Procedure Name Priority Date/Time Associated Diagnosis Comments TTE COMPREHENSIVE Routine 08/18/2025 9:0 3 AM EDT Pulmonary hypertension, unspecified MRI BRAIN (PITUITARY) WITH AND WITHOUT CONTRAST Routine 08/17/2025 10:25 AM EDT Pituitary adenoma OUTSIDE LAB 07/11/2025 OUTSIDE IMAGING 07/11/2025 OUTSIDE IMAGING 07/11/2025 OUTSIDE IMAGING 07/11/2025 OUTSIDE PROCEDURE 07/11/2025 OUTSIDE LAB 07/07/2025 OUTSIDE IMAGING 07/07/2025 OUTSIDE IMAGING 07/07/2025 OUTSIDE IMAGING 07/07/2025 HISTORICAL LAB Routine 01/06/2012 10:44 AM EDT from Last 3 Months or Most Recently Relevant to Health Maintenance Results * TTE COMPREHENSIVE (08/18/2025 9:03 AM EDT) Body Surface Area 1.65 m2 Height 152 cm Weight 68 kg Systolic BP 134 mmHg Diastolic BP 62 mmHg Aortic Valve Mean Gradient 4 mmHg Aortic Valve Time Velocity Integral 291.0 mm Aortic Valve Peak Velocity 1.3 m/s Aortic Valve Peak Gradient 7 mmHg Aortic Sinus Diameter 32 <40 mm Ascending Aorta Diameter 32 <36 mm Inferior Vena Cava Diameter 18 <21 mm Interventricular Septum Thickness 11 6 - 11 mm Left Ventricle Internal Diameter End Diastole 43 37 - 52 mm Left Ventricle Internal Diameter End Systole 28 <35 mm Left Ventricular Outflow Tract Diameter 23.0 mm LVOT VTI REST 217.0 mm Left Ventricular Outflow Tract Velocity 1.0 m/s Left Ventricular Outflow Tract Gradient at Rest 4 mmHg Left Ventricular Posterior Wall Thickness 11 6 - 11 mm Left Ventricle Ea Lateral Wave Speed 7.1 cm/s Left Ventricle Ea Septal Wave Speed 6.2 cm/s Ejection Fraction 70 50 - 75 Percent Left Ventricle A Wave Speed 67.3 cm/s Left Ventricle E Wave Speed 82.3 cm/s Pulmonary Valve Peak Velocity 1.1 m/s Pulmonary Valve Peak Gradient 4 mmHg Right Ventricle Basal Diameter 30 25 - 41 mm Tricuspid Valve Peak Velocity 3.2 m/s Raw LV EF% 58 % MV E/E' Tissue Velocity Lateral 11.59 Relative Wall Thickness 0.51 0.22 - 0.42 Left Ventricle indexed to BSA 98.8 g/m2 MV E/A ratio 1.2 MV E/e' septal 13.27 Left Ventricle E/e' Average 12.4 Aortic Valve Prosthetic Peak Gradient 7 mmHg Aortic Valve Prosthetic Mean Gradient 4 mmHg Aortic Valve Sinus Index by BSA 19 mm/m2 Aorta Sinus Index by Height 2.11 cm/m Aorta Sinus CSA index by Height 5.29 cm2/m Ascending Aorta Index 19 mm/m2 Asc Aorta CSA Index by Height 5.29 cm2/m Right Ventricle to Right Atrium Pressure Gradient 41 mmHg Right Ventricle Peak Systolic Pressure (Assuming RAP 10) 51 mmHg MGB CV ECHO TV RVSP (ASSUMING RAP OF 5) 46 mmHg RVSP (Exclusive of RAP) 41 mmHg Pulmonic Valve Prosthetic Peak Gradient 4 mmHg MGB CV AV DIMENSIONLESS INDEX (PEAK) - STRESS ECHO DOBUT - REST 0.77 Ascending Aorta Index 19 mm Aortic Sinus Index 19 mm Ascending Aorta Diameter 19 mm Aortic Valve Sinus Index 1 19 19 - 27 mm AO ASC DIAM BSA INDEX 19.39 Echo E/Ea 13.27 Left Atrial Volume Index 27 16 - 34 mL/m2 Right Ventricle Peak Systolic Pressure 44 mmHg Right Ventricle TAPSE 24 >=17 mm Right Ventricle Pulse Doppler S Wave 12.0 >=9.5 cm/s Left Atrial Volume 45 mL Left Atrial Volume Index by Height 30 mL/m Right Atrium Pressure Estimated 3 mmHg Anatomical Region Laterality Modality Heart Ultrasound Narrative 08/18/2025 10:45 AM EDT Images from the original result were not included. Mild LVH with normal LV systolic function EF 65 to 70%. Mild pulmonary hypertension estimated 44 mmHg. Normal RV size and function. Mild mitral regurgitation. Normal diastolic function for age. Normal RV size and function. Left Ventricle The left ventricle is normal in size. There is mild concentric hypertrophy. There is normal left ventricular systolic function. The LV ejection fraction is 70%. There are no wall motion abnormalities. LV diastolic function appears within normal limits for age. The E/A ratio is 1.2. The e' septal wave velocity is 6.2 cm/s. The e' lateral wave velocity is 7.1 cm/s. The average E/e' ratio is 12.4. Right Ventricle The right ventricle is normal in size. The RV basal dimension is 30 mm. There is normal right ventricular systolic function. TAPSE is 24 mm. RV S' wave is 12.0 cm/s. Left Atrium The left atrium is normal in size. The left atrial volume index by BSA is 27 mL/m2. Right Atrium The right atrium is normal in size. The IVC is normal in size with normal inspiratory collapse. The IVC diameter is 18 mm. Mitral Valve The mitral valve appears normal. There is no mitral stenosis. There is mild mitral regurgitation. Tricuspid Valve The tricuspid valve appears normal. There is no tricuspid stenosis. There is mild tricuspid regurgitation. The RV systolic pressure was calculated at 44 mmHg (using TR peak velocity of 3.2 m/s and assuming an RA pressure of 3 mmHg). Aortic Valve The aortic valve is tricuspid. There is mild leaflet thickening. There is no aortic stenosis. There is no aortic regurgitation. The visualized portions of the thoracic aorta appear normal in size. Pulmonic Valve The pulmonic valve appears normal. There is no pulmonic stenosis. There is trace pulmonic regurgitation. Pericardium The pericardium appears normal. General Findings Technique(s) used in the evaluation: Color flow Doppler and Spectral Doppler. The predominant rhythm during the study was sinus. Comparison Findings There are no prior studies for comparison. IAS/IVS The interatrial septum appears normal. There is no evidence of patent foramen ovale (PFO). us Abrahan Flanagan MD CV ECHO ORDERABLES Final Result * MRI BRAIN (PITUITARY) WITH AND WITHOUT CONTRAST (08/17/2025 10:25 AM EDT) Anatomical Region Laterality Modality Head Magnetic Resonan ce 08/18/2025 1:25 PM EDT Impressions 08/18/2025 1:49 PM EDT 1. Postoperative change for transsphenoidal surgery. The residual nodular areas of hypoenhancing tissue likely residual adenoma along the floor the sella and larger area within the left cavernous sinus appear similar to August 18, 2023. The suprasellar cistern is clear. Narrative 08/18/2025 1:49 PM EDT MRI BRAIN (PITUITARY) WITH AND WITHOUT CONTRAST Referring clinician's provided indication for this examination in Epic: * Pituitary adenoma, known or suspected TECHNIQUE: Multi-sequence, multi-planar MRI of the pituitary was performed before and after intravenous contrast. COMPARISON: MR pituitary August 18, 2023 FINDINGS: Sella: There is postoperative change for transsphenoidal surgery. There is fluid signal within the expanded right sphenoid sinus similar the prior study. There is hypoenhancing tissue throughout the left cavernous sinus below the cavernous carotid although with encasement of the cavernous carotid at the posterior genu that measures approximately 14 x 20 mm (SI, RL) on coronal postcontrast image 8. There is similar 8 x 13 mm (SI, RL) hypoenhancing tissue within the central and right lateral sella on coronal postcontrast image 8 similar the prior study. The pituitary infundibulum is deviated to the right. The right cavernous sinus appears normal. The suprasellar cistern is clear. No tumor invasion into the clival marrow. Brain: There are scattered foci of T2 hyperintensity in the white matter, likely a manifestation of chronic small vessel disease. No evidence of acute infarct, mass, hemorrhage or abnormal enhancement. There is no evidence of hydrocephalus or midline shift. Extracranial Structures: Normal. Procedure Note Carlos Roy, DO - 08/18/2025 MRI BRAIN (PITUITARY) WITH AND WITHOUT CONTRAST Referring clinician's provided indication for this examination in Epic: *Pituitary adenoma, known or suspected TECHNIQUE: Multi-sequence, multi-planar MRI of the pituitary was performedbefore and after intravenous contrast. COMPARISON: MR pituitary August 18, 2023 FINDINGS: Sella: There is postoperative change for transsphenoidal surgery. There isfluid signal within the expanded right sphenoid sinus similar the priorstudy. There is hypoenhancing tissue throughout the left cavernous sinusbelow the cavernous carotid although with encasement of the cavernouscarotid at the posterior genu that measures approximately 14 x 20 mm (SI,RL) on coronal postcontrast image 8. There is similar 8 x 13 mm (SI, RL)hypoenhancing tissue within the central and right lateral sella on coronalpostcontrast image 8 similar the prior study. The pituitary infundibulumis deviated to the right. The right cavernous sinus appears normal. Thesuprasellar cistern is clear. No tumor invasion into the clival marrow. Brain: There are scattered foci of T2 hyperintensity in the white matter,likely a manifestation of chronic small vessel disease. No evidence ofacute infarct, mass, hemorrhage or abnormal enhancement. There is noevidence of hydrocephalus or midline shift. Extracranial Structures: Normal. IMPRESSION: 1. Postoperative change for transsphenoidal surgery. The residual nodularareas of hypoenhancing tissue likely residual adenoma along the floor thesella and larger area within the left cavernous sinus appear similar toOctober 2022. The suprasellar cistern is clear. us Hang Emerson MD, PhD, MPH IMG MR HEAD/NECK Fi nal Result * Outside Imaging Report Only (07/11/2025) us Scanning Interface Provider IMG XR CHEST Chandrika l Result * Outside Imaging Report Only (07/11/2025) us Scanning Interface Provider IMG XR CHEST Chandrika l Result * Outside Imaging Report Only (07/11/2025) us Scanning Interface Provider IMG XR CHEST Chandrika l Result * Outside Procedure (07/11/2025) us Scanning Interface Provider PROCEDURE/MINOR SURG ICAL PERFORMABLES Final Result * Outside Lab (07/11/2025) Only the most recent of2 resultswithin the time period is included. us Scanning Interface Provider LAB BLOOD BKR ORDERA BLES Final Result * Outside Imaging Report Only (07/07/2025) us Scanning Interface Provider IMG XR CHEST Chandrika l Result * Outside Imaging Report Only (07/07/2025) us Scanning Interface Provider IMG XR CHEST Chandrika l Result * Outside Imaging Report Only (07/07/2025) us Scanning Interface Provider IMG XR CHEST Chandrika l Result * (ABNORMAL) Historical Lab (01/06/2012 10:44 AM EDT) WBC 5.61 4 - 10 K/uL [facility] RBC 4.76 3.9 - 6.0 M/uL [facility] HGB 13.0 11.5 - 16.4 g/dL [facility] HCT 39.7 36 - 48 % [facility] MCV 83.4 80 - 95 um3 [facility] MCH 27.3 27 - 32 uug [facility] MCHC 32.7 32 - 36 g/dL [facility] RDW 14.7(A) 11.5 - 14.5 % [facility] PLT 206 150 - 450 K/uL [facility] LYMP % 37.3 18 - 41 % [facility] MONO % 6.2 4.0 - 11.0 % [facility] NEUT % 50.8 48 - 76 % [facility] EOS % 5.3(A) 0 - 5 % [facility] BASO % 0.4 0 - 1.5 % [facility] LYMP # 2.09 0.8 - 4.1 K/uL [facility] MONO # 0.35 0.2 - 0.8 K/uL [facility] NEUT # 2.85 1.9 - 7.6 K/uL [facility] EOS # 0.30 0 - 0.35 K/uL [facility] BASO # 0.02 0.00 - 0.15 K/uL [facility] HGB A1C 7.7(A) 4.2 - 5.8 % [facility] Comment:VERIFIED 01/06/2012 10:4 4 AM EDT Comment:BLOOD Bridgette Sifuentes MD LAB BLOOD ORDERABLE S Final Result [facility] [address] [address] from Last 3 Months or Most Recently Relevant to Health Maintenance Insurance MEDICARE PART A & B [facility] MEDICARE SUPPLEMENT MEDICARE PART A & [facility] SUPPLEMENT MEDICARE PART A & [email or web address] MEDICARE SUPPLEMENT MEDICARE PART A & B [facility] MEDICARE SUPPLEMENT MEDICARE PART A & [email or web address] MEDICARE SUPPLEMENT MEDICARE PART A & B [facility] MEDICARE SUPPLEMENT MEDICARE PART A & B [facility] MEDICARE SUPPLEMENT MEDICARE PART A & B [facility] MEDICARE SUPPLEMENT MEDICARE PART A & B [facility] [employer] MEDICARE SUPPLEMENT [employer] Care Teams Typist Relationship Specialty Start Date End Date Carlos Florence MD [address] [place] [id number] PCP - General 02/28/15 Additional Source Comments The information contained in this document represents components of the legal health record. It is not the complete legal health record.[facility]
--- OUTSIDE RECORDS SUMMARY | 2025-09-13 17:05 | XMS_ITS | Encounter Summary ---
Author Organization [facility] Address [address] [place] [address] Phone Care Team Providers Care Drug Abuse Counselor Name Role Phone Carlos Florence MD Primary Care Provider Encounter Details Date Type Department Care Team (Late st Contact Info) Description 01/16/2024 Procedure Pass [facility] [address] [place] [address] Social History Tobacco Use Types Packs/Day Years [...] with a working camera? Not on file Comments No Sex and Gender Information Value Date Recorded Sex Assigned at Not on file Legal Sex Female 6:21 PM EST Gender Identity Not on file Sexual Orientation Not on file documented as of this encounter Plan of Treatment Not on file documented as of this encounter Visit Diagnoses Not on filedocumented in this encounter Care Teams Drug Abuse Counselor Relationship Specialty Start Date End Date Carlos Florence MD [address] [address] PCP - General 02/28/15 documented as of this encounter Additional Source Comments The information contained in this document represents components of the legal health record. It is not the complete legal health record.[facility]
--- OUTSIDE RECORDS SUMMARY | 2025-09-13 17:05 | XMS_ITS | Encounter Summary ---
Author Organization [facility] Address [address] [place] [address] Phone Care Team Providers Care Consulting Manager Name Role Phone Carlos Florence MD Primary Care Provider Bridgette Sifuentes MD Unavailable [phone] Encounter Details Date Type Department Care Team (Late st Contact Info) Description 08/17/2020 Procedure Pass [facility] MR Imaging, [place] [address] [place] [address] Social History Tobacco Use Types Packs/Day Years [...] on filedocumented in this encounter Care Teams Consulting Manager Relationship Specialty Start Date End Date Carlos Florence MD [address] [place] [id number] PCP - General 02/28/15 Bridgette Sifuentes MD [facility] [address] [place] [address] Historical LMR Provider 03/04/15 2 documented as of this encounter Additional Source Comments The information contained in this document represents components of the legal health record. It is not the complete legal health record.[facility]
--- OUTSIDE RECORDS SUMMARY | 2025-09-13 17:05 | XMS_ITS | Encounter Summary ---
Author Organization [facility] Address [address] [facility] [address] [facility] [address] [place] [phone] Phone Care Team Providers Care Grainer Machine Name Role Phone Carlos Florence MD Primary Care Provider Encounter Details Date Type Department Care Team (Late st Contact Info) Description 08/22/2022 Procedure Pass [facility], [address] [address] Social History Tobacco Use Types Packs/Day Years [...] on filedocumented in this encounter Care Teams Grainer Machine Relationship Specialty Start Date End Date Carlos Florence MD [facility] [address] [address] PCP - General 02/28/15 documented as of this encounter Additional Source Comments The information contained in this document represents components of the legal health record. It is not the complete legal health record.[facility]
== END 2025-09-13 14:43 | disposition home or self-care (01) ==
LOC: HO.HPSW 13:17
PROVIDERS: PCP Internal Medicine; Referring Provider Allergy & Immunology; Visit Provider Nurse Practitioner Family
DX: I27.20 Pulmonary hypertension, unspecified (principal); J45.909 Unspecified asthma, uncomplicated; Z91.09 Other allergy status, other than to drugs and biological substances; R06.00 Dyspnea, unspecified
CPT/HCPCS: 99204; G2211